=== PATIENT | male | born 1950 | race Caucasian/White ===

== ENCOUNTER 2025-03-20 05:25 | Observation (INO) ==
--- NOTE | 2025-02-14 09:59 | PAT Medication Instructions ---
Medication Instructions Date of Service February 14, 2025 Home Medications Lactobacillus rhamnosus-Bifidobac. animalis 3 billion cell capsule (GamePix) 1 cap PO DAILY alprazolam 0.25 mg tablet 0.25 mg PO DAILY PRN Anxiety azelastine 137 mcg (0.1 %) nasal spray 1 spray intranasal QAM cholecalciferol (vitamin D3) 25 mcg (1,000 unit) capsule (Vitamin D3) 25 mcg PO QAM clopidogrel 75 mg tablet 75 mg PO QPM cyanocobalamin (vitamin B-12) 2,500 mcg sublingual tablet (Vitamin B-12) 2,500 mcg sublingual DAILY folic acid 800 mcg tablet 2.4 mg PO DAILY lisinopril 10 mg tablet 10 mg PO QAM loratadine 10 mg tablet 10 mg PO QAM meclizine 25 mg tablet 25 mg PO DAILY PRN Vertigo multivitamin 1 tab PO QAM omega-3 acid ethyl esters 1 gram capsule (Lovaza) 2 cap PO BID pantoprazole 40 mg tablet,delayed release (Protonix) 40 mg PO QAM pyridoxine (vitamin B6) 100 mg tablet (Vitamin B-6) 100 mg PO DAILY risankizumab-rzaa 150 mg/mL subcutaneous pen injector (Skyrizi) 150 mg subcut UD ASK your prescriber and surgeon risankizumab-rzaa 150 mg/mL subcutaneous pen injector (Skyrizi) 150 mg subcut UD clopidogrel/plavix 75 mg tablet 75 mg PO QPM (From anesthesia perspective, Clopidogrel/Plavix is recommended to be stopped 7 days before surgery. Please check if okay with doctor that prescribes this to you) STOP taking 2 weeks before surgery (or as soon as possible if surgery is within 2 weeks) omega-3 acid ethyl esters 1 gram capsule (Lovaza) 2 cap PO BID DO NOT take the morning of surgery Lactobacillus rhamnosus-Bifidobac. animalis 3 billion cell capsule (GamePix) 1 cap PO DAILY cholecalciferol (vitamin D3) 25 mcg (1,000 unit) capsule (Vitamin D3) 25 mcg PO QAM cyanocobalamin (vitamin B-12) 2,500 mcg sublingual tablet (Vitamin B-12) 2,500 mcg sublingual DAILY folic acid 800 mcg tablet 2.4 mg PO DAILY lisinopril 10 mg tablet 10 mg PO QAM loratadine 10 mg tablet 10 mg PO QAM multivitamin 1 tab PO QAM pyridoxine (vitamin B6) 100 mg tablet (Vitamin B-6) 100 mg PO DAILY Take morning of surgery With a small sip of water, OTHERWISE NOTHING TO EAT OR DRINK AFTER MIDNIGHT: alprazolam 0.25 mg tablet 0.25 mg PO DAILY PRN Anxiety (if needed) azelastine 137 mcg (0.1 %) nasal spray 1 spray intranasal QAM meclizine 25 mg tablet 25 mg PO DAILY PRN Vertigo (if needed) pantoprazole 40 mg tablet,delayed release (Protonix) 40 mg PO QAM Take evening before surgery alprazolam 0.25 mg tablet 0.25 mg PO DAILY PRN Anxiety (if needed) meclizine 25 mg tablet 25 mg PO DAILY PRN Vertigo (if needed) Other Notes If you have any questions please call us at [phone] or [phone] or [phone] or [phone]
--- NOTE | 2025-02-21 14:12 | Anesthesiology Consultation ---
Date of Service February 21, 2025 Assessment & Plan (1) Encounter for pre-operative examination: - Infectious disease screening: Per assessment on 02/21/25- No known recent infectious disease contacts or current infectious disease symptoms. - Outpatient joint assessment: Pt currently scheduled for inpatient pathway. If surgeon requests review for outpatient joint pathway, patient is not recommended candidate for outpatient joint program from anesthesia standpoint based on available information. - Plavix instructions: patient made aware that for neuraxial anesthesia, Plavix/Clopidogrel needs to be held 7 days prior to surgery. Patient voiced understanding/will check if okay with prescriber. - Heme/oncology note (01/02/25): Medically cleared for surgery - PCP note (01/04/25): Medically cleared for surgery - Urology note (01/07/25): Medically cleared for surgery Chart Review Chart Review: Acceptable Risk for Surgery and Patient seen in Pre Admission Testing Teaching & Discussion Pre-Anesthesia Teaching/Discussion Notes: Instructed NPO after midnight before surgery,except medications with 15 cc of water. Medication instructions provided according to the PAT guidelines. History Surgery Operation Date: 03/20/25 07:00 Proposed Procedures p Left Total Knee Arthroplasty - Manjeet Hooks MD Height/Weight Height: 5 ft 11 in Weight: 97 kg Allergies Allergy/AdvReac Type Severity Reaction Status Date / Time fluconazole Allergy Hives Verified 02/12/25 07:54 naproxen [From Naprosyn] AdvReac Hiccups Verified 02/18/25 14:08 Medications Home Medications Medication Instructions Recorded Confirmed Last Taken Lactobacillus rhamnosus-Bifidobac. 1 cap PO DAILY 02/12/25 02/12/25 Unknown animalis 3 billion cell capsule (Proximiant) alprazolam 0.25 mg tablet 0.25 mg PO DAILY PRN Anxiety 02/12/25 02/12/25 Unknown azelastine 137 mcg (0.1 %) nasal 1 spray intranasal QAM 02/12/25 02/12/25 Unknown spray cholecalciferol (vitamin D3) 25 25 mcg PO QAM 02/12/25 02/12/25 Unknown mcg (1,000 unit) capsule (Vitamin D3) clopidogrel 75 mg tablet 75 mg PO QPM 02/12/25 02/12/25 Unknown cyanocobalamin (vitamin B-12) 2,500 mcg sublingual DAILY 02/12/25 02/12/25 Unknown 2,500 mcg sublingual tablet (Vitamin B-12) folic acid 800 mcg tablet 2.4 mg PO DAILY 02/12/25 02/12/25 Unknown lisinopril 10 mg tablet 10 mg PO QAM 02/12/25 02/12/25 Unknown loratadine 10 mg tablet 10 mg PO QAM 02/12/25 02/12/25 Unknown meclizine 25 mg tablet 25 mg PO DAILY PRN Vertigo 02/12/25 02/12/25 Unknown multivitamin 1 tab PO QAM 02/12/25 02/12/25 Unknown omega-3 acid ethyl esters 1 gram 2 cap PO BID 02/12/25 02/12/25 Unknown capsule (Lovaza) pantoprazole 40 mg tablet,delayed 40 mg PO QAM 02/12/25 02/12/25 Unknown release (Protonix) pyridoxine (vitamin B6) 100 mg 100 mg PO DAILY 02/12/25 02/12/25 Unknown tablet (Vitamin B-6) risankizumab-rzaa 150 mg/mL 150 mg subcut UD 02/12/25 02/12/25 Unknown subcutaneous pen injector (Skyrizi) Past Medical History Medical History History of anxiety History of hypertension History of prostate cancer Dx 09/2020, XRT started 11/2020 Hx of gastroesophageal reflux (GERD) Hx of hyperlipidemia Plaque psoriasis Reason for Skyrizi Prothrombin gene mutation Reason for Plavix Followed with [facility] hematology for 20 years and "released due to no changes in bloodwork" > Now just monitored by PCP Exercise / Class Metabolic Activity II 4-5 Yardwork/Stairs/Walk up hill (one FS: No CP, no SOB) Past Surgical History Surgical History History of carpal tunnel release of both wrists History of esophagogastroduodenoscopy (EGD) (12/08/21) History of lumbar spinal fusion (05/30/12) Hx of colonoscopy (12/08/21) Hx of tonsillectomy Past Anesthesia History No Hx of Anesthesia Complications and No Family Hx of Anesthesia Complications History of PONV No Hx of PONV and Hx of Motion Sickness (+ vetrigo) Social History Smoking Status: Never smoker Do You Dip or Chew Tobacco: No Hx Alcohol Use: Yes alcohol intake frequency: holidays/special occasions only Hx Substance Use: No substance use type: does not use Review of Systems Patient denies chest pain, shortness of breath, dyspnea on exertion, fever, chills, cough, wheezing. Physical Exam Vital Signs BP 114/61 P 60 TEMP 98.1 SP02 95%RA RESP 16 Physical Full cervical extension range of motion. Full TMJ range of motion. TMD 2.5 finger breaths Mallampati Score III Dentition: intact, + crowns, + bridge Lungs: clear throughout to auscultation Cardiac: regular rate and rhythm, no murmurs noted Spine: normal Carotid arteries: negative bruit Extremities: no LE edema Lab Results Anesthesia Preop Results Results Anesthesia Widget: WBC 6.75 K/ul (4.8-10.8) 02/21/25 Hgb 13.9 g/dl (14.0-18.0) L 02/21/25 Hct 40.4 % (42.0-52.0) L 02/21/25 Plt 199 K/uL (130-400) 02/21/25 Na 140 mmol/L (136-145) 02/21/25 K 4.2 mmol/L (3.5-5.1) 02/21/25 Cl 105 mmol/L (98-107) 02/21/25 CO2 27 mmol/L (21-32) 02/21/25 BUN 26 mg/dl (6-23) H 02/21/25 Creat 1.25 mg/dl (0.6-1.4) 02/21/25 Glucose Level 87 mg/dl (70-99(Fasting)) 02/21/25 PT 11.8 Seconds (9.0-12.0) 02/21/25 PTT 26 Seconds (21-31) 02/21/25 INR 1.1 (0.9-1.1) 02/21/25 Urine Color Yellow 02/21/25 Urine Appearance Clear (Clear) 02/21/25 Urine pH 6.5 (4.5-7.5) 02/21/25 Urine Specific Byers 1.022 (1.000-1.030) 02/21/25 Urine Protein Negative (Negative) 02/21/25 Urine Glucose (UA) Negative (Negative) 02/21/25 Urine Ketones Trace (Negative) H 02/21/25 Urine Blood Negative (Negative) 02/21/25 Urine Nitrite Negative (Negative) 02/21/25 Urine Bilirubin Negative (Negative) 02/21/25 Urine Urobilinogen Negative (Negative) 02/21/25 Urine Leukocyte Esterase Negative (Negative) 02/21/25 Blood Type A Positive 02/21/25 Antibody Screen NEGATIVE 02/21/25 Testing Electrocardiogram Date: 02/21/25 SR with first degree AVB. "Otherwise normal ECG" Chest X-Ray Date: 02/21/25 FINDINGS: Heart size and pulmonary vasculature are normal. No consolidation or pleural effusion. IMPRESSION: No acute findings.
--- NOTE | 2025-03-20 05:24 | History & Physical Bridge Note ---
Date of Service March 20, 2025 History & Physical Bridge Note I have examined the patient, reviewed the History & Physical and in the interval since the performance of the History & Physical I have noted the following changes of clinical significance:consent and site verifed.emphasized stiffness,infection and dvt prevention. no changes noted
[2025-03-20] MEDS ORDERED: MIDAZOLAM HCL 1 MG/ML 2ML VIAL ONE (05:55)
[2025-03-20] MEDS ORDERED: LIDOCAINE 2% 2 ML VIAL/AMP(20MG/ML) INFIL ONE (05:55)
[2025-03-20] MEDS ORDERED: ONDANSETRON INJ 2 MG/ML 2 ML VIAL ONE (05:56)
[2025-03-20] MEDS ORDERED: PROPOFOL IV EMULSION 10 MG/ML 20 ML VIAL IV ONE (05:56)
[2025-03-20] MEDS: LR 60ML/HR IV SCH (05:59)
[2025-03-20] MEDS: LR 500ML BOLUS, THEN 15ML/HR IV SCH (06:28)
[2025-03-20] MEDS ORDERED: ONDANSETRON INJ 2 MG/ML 2 ML VIAL IV PRN (06:31)
[2025-03-20] MEDS ORDERED: ATROPINE SULFATE 0.1 MG/ML 10ML SYR IV PRN (06:31)
[2025-03-20] MEDS ORDERED: BUPIVACAINE 0.5 % 5 MG/1 ML PF 10ML VIAL ONE (06:34)
[2025-03-20] MEDS ORDERED: ROPIVACAINE 0.5% 5 MG/ML 30 ML VIAL ONE (06:34)
[2025-03-20] MEDS: TRANEXAMIC ACID 1,000 MG **IV Pre-op IV SCH (06:36)
[2025-03-20] MEDS: ORTHO JOINT ANESTHETIC ONE (07:22)
[2025-03-20] MEDS ORDERED: ePHEDrine sulfate 50 MG/5 ML SYR ONE (07:31)
[2025-03-20] MEDS ORDERED: KETAMINE HCL 10MG/ML SYR ONE (07:33)
[2025-03-20] MEDS: ROPIV 0.5% 246mg, Ketorolac 30mg, EPINEPHrine 0.5mg in NSS INFIL SCH (08:07)
--- NOTE | 2025-03-20 08:36 | Post Operative Brief Note ---
Immediate Post Op Note Date of Surgery March 20, 2025 Pre & Post Diagnosis Operation Date: 03/20/25 07:00 <No data on this case meets the specified criteria> Cemented left total knee replacement for osteoarthritis left knee pre and postop diagnosis same I identified the patient and participated in the time-out.: Yes Procedure Operation Date: 03/20/25 07:00 <No data on this case meets the specified criteria> Cemented left total knee replacement Surgeon Manjeet Hooks MD Casting House Laborer Dominga/Rosemarie Estimated Blood Loss 75 Findings Consistent with Post-Op Diagnosis Severe medial disease grade 4 tibia and femur varus alignment grade 3 patellofemoral joint lateral compartment relatively well-preserved Fluids 1000 cc Complications None
--- NOTE | 2025-03-20 08:40 | Operative Report ---
Post Operative Report Pre & Post Diagnosis Operation Date: 03/20/25 07:00 <No data on this case meets the specified criteria> Pre and postop diagnosis osteoarthritis left knee with varus alignment flexion contracture I identified the patient and participated in the time-out.: Yes Procedure Operation Date: 03/20/25 07:00 <No data on this case meets the specified criteria> Cemented left total knee replacement Surgeon Manjeet Hooks MD Sign Poster Dominga/Rosemarie Estimated Blood Loss 75 Findings Consistent with Post-Op Diagnosis Severe medial disease tibia femur grade 3 patellofemoral joint Fluids 1000 cc Specimens Bone pathology Drains None Complications None Indications Severe pain conservative management is failed over the last 18 months including injections oral anti-inflammatories exercise modification weight management Description of Procedure After the patient was appropriate notified site for by consent verified antibiotics confirmed has been given the left lower extremity was prepped and draped use routine fashion. Tourniquet was inflated to 275 mmHg after exsanguination limb with a rubber band for total of 61 minutes. Midline exp osure utilized parapatellar thyrotomy performed synovectomy completed. Had significant stiffness posteriorly contracture medially requiring significant release. Was stopped to get the tibia to subluxate eventually it did. Menisci were resected. Cruciates were resected. Distal femur entered. Distal femur cut 11 mm proximal tibia cut 4 mm. Extension gap was checked as excellent. Tibia was sized to a 5 femur to a 5 appropriate cutting block applied to the distal femur and anterior posterior, and chamfer cuts made flexion gap checked there was excellent. A box cut was then made required multiple fine-tuning around the posterior medial posterolateral parts of the box before the implant sat down very flushed once it did we cut the lug holes. Trial fit well. Tibia was broached and reamed to a size 5 and trial spacer was 7 mm gave excellent stability through the full range of motion patella tracked well. Patella was everted and resected leaving 15 mm. It was roughly 25 mm in width. A 41 button was then seated the seating holes made in the trial seated in tracked very well. Ortho mix was then injected all about the knee knee was then irrigated with Pulsavac soaked in Betadine for 3 minutes and then irrigated again and then the permanent cemented into position tibia femur patella in that order at 12 minutes the tourniquet was deflated minor bleeding points controlled electrocautery. He did receive an additional dose of TXA a minute and a half prior to letting the tourniquet down. The trial spacer was removed no cement removal was required to the was then irrigated with Pulsavac Betadine the permanent spacer seated the knee reduced and closed at 40 degrees of flexion with #2 Vicryl 2-0 Vicryl and stainless steel clips. EBL was 75 cc crystalloid 1000 cc. Summary of implants size 41 patella's size 5 left femur cruciate PCL substituting 5 tibia rotating platform tray 5 x 7 poly posterior cruciate stabilized rotating platform direct 2 bags of Palacos G cement. These were all ATT UNE DePuy Synthes total knee system. I attest to the content of the Intraoperative Record and any orders documented therein. Any exceptions are noted below.
--- NOTE | 2025-03-20 08:44 | Operative Report ---
Post Operative Report Pre & Post Diagnosis Operation Date: 03/20/25 07:00 Pre-Op Diagnosis: Left Knee Degenerative Joint Disease Post-Op Diagnosis: Left Knee Degenerative Joint Disease I identified the patient and participated in the time-out.: Yes Procedure Operation Date: 03/20/25 07:00 Actual Procedures p Left Total Knee Arthroplasty(Left) - Manjeet Hooks MD Surgeon Manjeet Hooks MD Manager Decision Support Dominga/Rosemarie Estimated Blood Loss 75 Findings Consistent with Post-Op Diagnosis Specimens Left knee bone pathology Description of Procedure Patient was brought to the operative suite where he underwent anesthesia. Left lower extremity was prepped and draped in usual sterile fashion. Surgical timeout was performed. Patient underwent a left total knee arthroplasty, please see Dr. Hooks's operative report for full details. I was present and assisted with limb positioning, soft tissue retraction, hemostasis, hardware implantation, wound closure, postoperative dressing placement. Patient was taken recovery room in stable condition. I attest to the content of the Intraoperative Record and any orders documented therein. Any exceptions are noted below.
--- NOTE | 2025-03-20 08:45 | Operative Report ---
Post Operative Report Pre & Post Diagnosis Operation Date: 03/20/25 07:00 Pre-Op Diagnosis: Left Knee Degenerative Joint Disease Post-Op Diagnosis: Left Knee Degenerative Joint Disease I identified the patient and participated in the time-out.: Yes Procedure Operation Date: 03/20/25 07:00 Actual Procedures p Left Total Knee Arthroplasty(Left) - Manjeet Hooks MD Surgeon JJ Hooks MD Transport Rn Dominga/Rosemarie REAL Estimated Blood Loss 75 Findings Consistent with Post-Op Diagnosis See operative report Specimens See operative report Drains None Complications none Disposition Accompanied Patient To Recovery: Yes Indications 74-year-old male presented to the office with complaints of persisting left knee pain. He had tried conservative care measures, including activity modification, OTC medications, and injection therapy, without improvement. He elected to proceed with surgical intervention after being educated about potential risks and outcomes. Preoperative imaging was obtained. Description of Procedure The patient was administered a spinal anesthetic and then taken to the operating room where he was given sedation. He was prepped and draped in the usual sterile fashion. Please see Dr. Hooks's operative report for specifics of the procedure. I was present for the entire case from initial patient positioning through final wound closure. Assistance was provided in tissue retraction, hemostasis, trial implant placement, final implant placement, and final wound closure. The patient was taken to the recovery room in satisfactory condition. I attest to the content of the Intraoperative Record and any orders documented therein. Any exceptions are noted below.
--- NOTE | 2025-03-20 09:02 | Orthopedic Progress Note ---
Date of Service March 20, 2025 Orthopedic Progress Note Patient seen in recovery room. He is awake and alert. Denies chest pain shortness of breath fever chills nausea vomiting or headache. Vital signs are stable he is afebrile. Neurovascular check is limited by spinal. Postop x-rays look excellent. Assessment doing well status post left total knee replacement cemented. Continue with care pathway. Family/daughter contacted and aware of his status.
--- NOTE | 2025-03-20 09:04 | Discharge Summary ---
Date of Service March 21, 2025 Admission HPI Per Admitting Provider Osteoarthritis left knee failed conservative management Principal Diagnosis Osteoarthritis left knee status post cemented left total knee replacement Discharge Data Allergies Allergy/AdvReac Type Severity Reaction Status Date / Time fluconazole Allergy Hives Verified 03/20/25 05:47 naproxen [From Naprosyn] AdvReac Hiccups Verified 03/20/25 05:47 Vaccinations None Consultations None Procedures Performed Operation Date: 03/20/25 07:00 Actual Procedures p Left Total Knee Arthroplasty(Left) - Manjeet Hooks MD Ordered Studies 03/20/25 05:00 US - OR guided needle placemen Routine Hospital Course (1) Status post left knee replacement: Continue care plan for total knee replacement Total Time Total Time Spent Total Time Spent (In Minutes): 5 Discharge Plan Discharge Items Reason For Visit: Left Knee Osteoarthritis Discharge Diagnosis: Status post cemented left total knee replacement for osteoarthritis left knee Condition on Discharge: Good Activity: Per Instructions section Lifting: Wait until after follow-up appointment Bathing: Keep incision dry Sexual Activity: Wait until after follow-up appointment Exercise/Sports: Wait until after follow-up appointment Driving/Machine Use: No driving until cleared by Dr. Hooks Weightbearing: Full weightbearing Non-emergency contact: Surgeon Call non-emergency contact if: you have any medication questions, your pain is not controlled, your temperature is above 101, your wound has increased redness, your wound has increased drainage and your wound pain has increased Follow-up/Referrals: Nikki Ramírez MD [Primary Care Provider] - Diet: Regular Addtl Attending Provider Instructions: New Medicine: * You will likely be taking one or more of these medications: 1. Percocet - Take, as directed, when you need it, every four to six hours to control your pain. 2. Iron Sulfate - Take 1x each day for the month after surgery to help you replace the blood lost during surgery. 3. Aspirin - Thins your blood to lessen the chance of forming a blood clot. The dose of this is different for each person and is based on your blood tests that are done twice a week. * The most common side effects of pain medicine and iron are nausea and constipation. If nausea or constipation is too much of a problem or if you have any questions about your new medicines or doses, call [facility] at . We will try to help you manage these issues. "VERY IMPORTANT TO READ AND REVIEW" Blood Clots and Blood Thinning Medicine: * You are given Aspirin during the immediate post-operative period to lessen the risk of blood clots forming in your legs and/or lungs. it is usually given for six weeks after Pain: * The immediate post-operative period after knee replacement surgery is often quite painful. * You are given a prescription for pain medicine. You should take it, as directed, when you need it, especially before physical therapy and before going to bed. Pain that interferes with sleep is very common and can last several months. * You will likely need pain medicine for the first four to six weeks. It will not stop all of the pain. The pain will lessen and as you feel better, you may change to milder pain medicine such as Tylenol. * The most common side effects of pain medicine are nausea and constipation, so don't take more than you need. Physical Therapy: * You will have physical therapy two or three times each week for four to six weeks after your surgery in order to regain your knee range of motion and to retrain your knee to work properly. * It is just as important to make sure you are getting your knee perfectly straight as it is to regain your knee bend. * Taking a pain pill an hour before therapy can help you have a more productive and comfortable therapy session if needed. Home Exercise: * You were shown a series of exercises (heel props, heel slides, etc.) in the hospital. Do these exercises three to four times each day including the exercises you were shown in physical therapy. Walking: * Get up and walk several times each day. For the first four weeks, try not to stand or walk for more than one hour at a time. If you do stand or walk for more than one hour, you will not hurt anything, but your knee and leg will likely swell. * As you feel comfortable, you may change from the walker or crutches to a cane and then to independent walking. SELF CARE INSTRUCTIONS AFTER TOTAL KNEE REPLACEMENT A. You may need to continue a physical therapy program after discharge from the hospital. There are several options available to you. Your doctor will assist you in selecting the best one for you. 1. An out-patient facility 2 to 3 times a week for therapy or home therapy. 2. Continue working on all exercises taught to you in the hospital. Your goals should be to increase bending of your knee to 90 degrees and beyond and to fully straighten your knee. B. You may progress at your own pace from walking with a walker or crutches to a cane; then to no assistive devices. C. Make walking a part of your daily routine. Be up as much as comfortable with rest periods throughout the day. Rest with leg elevation is very important. Use the ice wrap frequently for the first 3-4 weeks. D. There are no restrictions on activities. You may ride in a car, shop, participate in folder and notcher and all social activities. E. Wear the long elastic stockings (NANI hose) 20 hours a day for six weeks after surgery. They can be removed several times a day for laundering and for a shower. F. Do not place a pillow behind your knee when resting. A pillow at your ankle is okay. G. You may return to previous diet. VERY IMPORTANT TO READ AND REVIEW A. Take Aspirin (blood thinning medication) as directed by your doctor. B. There are a few signs you need to watch for after you are home. Call [facility] if you notice any of the followin. Increased severe knee pain. Some pain is expected especially when you exercise. 2. Increased swelling in your leg or knee; pain or swelling of the calf muscle in either lower leg. 3. Any fluid drainage from the incision. 4. Shortness of breath or chest pain. C. Please call [facility] at if you have any concerns or questions about your operation or recovery. The doctor or his nurse will return your call promptly. D. You must take antibiotics before dental work, bladder, bowel or other surgery. Call the office to obtain a prescription at least 2 days prior to your appointment. * CALL IF INCREASED PAIN, REDNESS, DRAINAGE OR FEVER GREATER THAT 101. * Sutures should be removed 12-14 days after surgery unless you are on chronic steroids, then it will be 14-18 days after surgery. Call your doctor if: * Temperature above 101 degrees F. * Pain not relieved by pain medicine ordered. * Increased drainage or redness from incision. * Notify your doctor with any questions or concerns. MEDICATIONS: * Please take your prescriptions as instructed at your pre-op appointment and/or see medication discharge instructions listed above. * If concerns develop, call your physician's office at . SPECIAL CARE INSTRUCTIONS: * Ice/Elevate as instructed. * Keep dressing clean, dry, intact. * Your surgical extremity may be discolored due to prepping agents used on the skin. A bluish-green tint is a normal variant and should not cause alarm. Call your doctor at [phone] if: * Temperature above 101 degrees * Pain not relieved by pain medicine ordered * There is increased drainage or redness from any incision * You have any unanswered questions, problems or concerns. FOLLOW UP VISIT: * If not already scheduled, please call the office at to schedule a follow-up appointment. Pending Studies at Discharge: Yes Studies:: bone pathology Stand-Alone Forms: My [facility] Medications and DC Order Prescriptions: No Action multivitamin Tablet 1 tab PO QAM cyanocobalamin (vitamin B-12) [Vitamin B-12] 2,500 mcg Tablet, Sublingual 2,500 mcg SUBLINGUAL DAILY clopidogrel 75 mg Tablet 75 mg PO QPM alprazolam 0.25 mg Tablet 0.25 mg PO DAILY PRN (Reason: Anxiety) meclizine 25 mg Tablet 25 mg PO DAILY PRN (Reason: Vertigo) pantoprazole [Protonix] 40 mg Tablet,Delayed Release (Dr/Ec) 40 mg PO QAM lisinopril 10 mg Tablet 10 mg PO QAM pyridoxine (vitamin B6) [Vitamin B-6] 100 mg Tablet 100 mg PO DAILY azelastine 137 mcg (0.1 %) [place],Non-Aerosol 1 spray INTRANASAL QAM Rx Instructions: administer into each nostril loratadine 10 mg Tablet 10 mg PO QAM folic acid 800 mcg Tablet 2.4 mg PO DAILY cholecalciferol (vitamin D3) [Vitamin D3] 25 mcg (1,000 unit) Capsule 25 mcg PO QAM omega-3 acid ethyl esters [Lovaza] 1 gram Capsule 2 cap PO BID Skyrizi 150 mg/mL Pen Injector 150 mg SUBCUT UD Rx Instructions: every 12 weeks [facility] 3 billion cell Capsule 1 cap PO DAILY Admission Data Admit Date/Time: 03/20/25 08:53 Attending Provider: Manjeet Hooks Admit Provider: Manjeet Hooks Primary Care Provider: Nikki Ramírez V. Other Providers: [facility],Home Health
--- NOTE | 2025-03-20 09:09 | XRay Report ---
XR knee LT 1 or 2V routine CLINICAL HISTORY: S/P L TKA COMPARISON: None FINDINGS: Left knee prosthesis shows no hardware complication. There is expected soft tissue gas. Sk in [place] are present. IMPRESSION: Unremarkable postoperative exam. ACT 112: Negative or not required by law. Electronically signed by: Miguel Buenrostro M.D. 03/20/2025 9:08 AM
--- NOTE | 2025-03-20 11:05 | Anesthesiology Progress Note ---
Date of Service March 20, 2025 Anesthesia Post Procedure Vital Signs Vital Signs: Temp Pulse Resp BP Pulse Ox O2 Del Method O2 Flow Rate 03/20/25 10:45 72 19 126/72 96 Room Air 03/20/25 10:30 68 19 123/78 96 Room Air 03/20/25 10:15 69 25 H 152/63 H 98 Room Air 03/20/25 10:00 56 L 20 140/60 98 Room Air 03/20/25 09:50 57 L 14 125/54 L 92 Room Air 03/20/25 09:40 58 L 18 136/60 97 Room Air 03/20/25 09:30 97.3 F L 61 20 126/74 100 Room Air 03/20/25 09:20 56 L 15 132/63 97 Room Air 03/20/25 09:10 58 L 16 139/69 100 Room Air 03/20/25 09:00 65 18 138/65 99 Room Air 03/20/25 08:50 69 17 134/72 99 Oxymask 10 03/20/25 08:43 97.2 F L 74 18 122/67 97 Oxymask 10 03/20/25 05:50 97.7 F 61 20 161/94 H 99 Room Air Pain Intensity Left Knee: Pain Intensity: 0 Transfer of Care Handoff Completed per policy Notes Mental Status: alert / awake / arousable and participated in evaluation Patient Amnestic to Procedure: Yes Nausea / Vomiting: adequately controlled Pain: adequately controlled Airway Patency, RR, SpO2: stable & adequate BP & HR: stable & adequate Hydration State: stable & adequate Neuraxial Anesthesia: was administered and sensory block is resolving Anesthetic Complications: no major complications apparent and Pt Satisfied with anesthetic care
--- NOTE | 2025-03-20 12:05 | Orthopedic Progress Note ---
Date of Service March 20, 2025 Orthopedic Progress Note Postop check. Patient is in the PACU because they are still having difficulty getting a bed on the third floor. He denies any chest pain shortness of breath fever chills nausea vomiting or headache. Vital signs are stable he is afebrile. Neurovascular check femoral sciatic nerve is intact. Can do ankle dorsi and plantarflexion inversion eversion circumduction in both directions. Can do a straight leg raise. Wound dressing clean dry and intact. Postop x-rays look excellent. Assessment doing well status post left total knee replacement needs to get up on the floor so we can scan his therapy going get him out of bed. Initiate anticoagulation tomorrow with aspirin and his chronic platelet inhibitor.
[2025-03-20] MEDS ORDERED: NALOXONE HCL 0.4 MG/1 ML VIAL/CARP IV PRN (13:48)
[2025-03-20] MEDS ORDERED: MAGNESIUM HYDROXIDE SUSP 30 ML UDC PO PRN (13:48)
[2025-03-20] MEDS ORDERED: TAMSULOSIN HCL 0.4 MG CAP PO PRN (13:48)
[2025-03-20] MEDS ORDERED: ALUMINUM/MAGNESIUM SUSP 30 ML UDC PO PRN (13:48)
[2025-03-20] MEDS ORDERED: METOCLOPRAMIDE HCL INJ 5 MG/ML 2 ML VIAL IV PRN (13:48)
[2025-03-20] MEDS ORDERED: HYDROmorphone INJ 0.5 MG/0.5 ML SYR IV PRN (13:48)
[2025-03-20] MEDS ORDERED: MECLIZINE HCL 25 MG TAB PO PRN (13:48)
[2025-03-20] MEDS: SODIUM CHLORIDE 0.9% 1,000 ML IV SCH (14:24)
[2025-03-20] MEDS: KETOROLAC TROMETHAMINE 15 MG/ML VIAL IV SCH (14:57)
[2025-03-20] MEDS: DOCUSATE SODIUM 100 MG CAP PO SCH (14:57)
[2025-03-20] MEDS: ACETAMINOPHEN 500 MG TAB PO SCH (14:57)
[2025-03-20] MEDS: AZELASTINE HCL 0.1% NASAL 200 SPRAYS/27,400 MCG BTL NAE SCH (14:58)
[2025-03-20] MEDS: ASCORBIC ACID 500 MG TAB PO SCH (14:59)
[2025-03-20] MEDS: LORATADINE 10 MG TAB PO SCH (14:59)
[2025-03-20] MEDS: MULTIVITAMIN TAB PO SCH (14:59)
[2025-03-20] MEDS: FERROUS GLUCONATE 324 MG TAB PO SCH (14:59)
[2025-03-20] MEDS: SENNA 8.6 MG TAB PO SCH (20:22)
[2025-03-20 23:12] VITALS: RESP 16
[2025-03-20] MEDS: diphenhydrAMINE 50 MG/ML VIAL IV PRN (23:15)
[2025-03-20] MEDS: ONDANSETRON INJ 2 MG/ML 2 ML VIAL IV PRN (23:15)
[2025-03-21 03:22] VITALS: O2SAT 93
--- NOTE | 2025-03-21 06:52 | Orthopedic Progress Note ---
Date of Service March 21, 2025 Assessment & Plan Admission and Anticipated Discharge Date Admission Date: March 20, 2025 Orthopedic Progress Note Postop day #1 status post left total knee replacement. Little bit stiffer and sore today but otherwise denies chest pain shortness of breath fever chills nausea vomiting or headache. Vital signs are stable he is afebrile. Neurovascular check femoral sciatic nerve is normal. Can wiggle his toes in extension flexion and ankle dorsiflexion plantarflexion inversion eversion. Can do straight leg raise. Can flex to about 70 degrees. Calves nontender. A.m. labs are pending. Assessment doing well plan is to have PA changed dressing today prior to discharge initiate anticoagulation with aspirin and his usual antiplatelet medication. Discharge after PT OT today. Follow-up in 2 weeks for wound assessment and potential staple removal. Patient denies any other questions. Advised to call the office if he has any issues.
[2025-03-21 07:08] VITALS: BP 130/70; PULSE 69; TEMP 99.3
[2025-03-21 08:15] LABS: Hematocrit (blood only) 37.8 % (42.0-52.0); Hemoglobin 13.2 g/dl (14.0-18.0); Mean Corpuscular Hemoglobin 30.8 pg (25.0-34.0); Mean Corpuscular Volume 88.3 fL (80.0-100.0); Platelet Count 147 K/uL (130-400); RDW Standard Deviation 41.2 fL (36.4-46.3); Red Blood Count 4.28 M/uL (4.70-6.10); White Blood Count 10.26 K/ul (4.8-10.8)
[2025-03-21 08:29] LABS: Anion Gap 7.0 (3-11); Blood Urea Nitrogen 20.0 mg/dl (6-23); Calcium 8.6 mg/dl (8.6-10.3); Carbon Dioxide 26.0 mmol/L (21-32); Chloride 102.0 mmol/L (98-107); Creatinine Clr Calc Pharmacy 58.7 ml/min; Glucose 111.0 mg/dl (70-99(Fasting)); Potassium 4.3 mmol/L (3.5-5.1); Sodium 135.0 mmol/L (136-145)
--- NOTE | 2025-03-21 08:44 | Orthopedic Progress Note ---
Date of Service March 21, 2025 Assessment & Plan (1) Status post left knee replacement: Plan: The patient was educated regarding today's findings. His dressings were changed today by me. Randy stocking was applied. The dressing can remain in place through the weekend. He can be changed on Tuesday by home health services if needed for soiling. They can otherwise remain in place until he is seen in the office in 2 weeks. Postop appointment has been scheduled for April 04. He will resume his Plavix this evening and add aspirin 325 mg twice daily for DVT prophylaxis. Written discharge instructions were provided. Call the office with any other concerns. Use the knee immobilizer when out of bed today and tomorrow for protection. It can be discontinued entirely on Tuesday morning. Admission and Anticipated Discharge Date Admission Date: March 20, 2025 Subjective This 74 year old male is seen today in his room. He is 1 day status post left total knee arthroplasty. He states he did not sleep well last night. There were too many interruptions and his leg was spasming periodically, causing it to jump. He denies any chest pain, shortness of breath, nausea, vomiting, or abdominal pain. He feels ready to be discharged to home. No other complaints. He is waiting for PT and OT. Review of Systems Review of Systems: Unchanged from yesterday. Physical Exam Physical Exam: General: Well-developed, well-nourished, elderly male, in no acute distress. Seen laying in bed. Alert and oriented. Skin: Warm and dry with good turgor. No rashes. No ecchymosis. Postsurgical dressings are in place on the left leg. Upon removal, he has expected postoperative edema. No ecchymosis or erythema. [place] are in place. Wound edges are well-approximated. No active bleeding. Musculoskeletal: Left knee evaluation reveals flexion to around 70 degrees. He has resting flexion of around 20 degrees. He is able to get almost to full extension with encouragement and time. He is able to perform a straight leg raise. Intact motor function of the ankle and toes. Neurologic: Gross sensation is intact across the left leg by soft touch. Peripheral pulses are 2+. Results & Data Vital Signs (Past 12 Hours) Vital Signs Temp Pulse Pulse Resp BP BP Pulse Ox 03/21/25 07:07 37.4 C 69 16 130/70 93 03/21/25 03:21 37.1 C 68 16 123/67 93 03/20/25 23:12 37.2 C 74 16 135/73 94 O2 Del Method 03/21/25 07:07 Room Air 03/21/25 03:21 Room Air 03/20/25 23:12 Room Air Laboratory Results CBC obtained this morning shows a white count of 10.26. H&H of 13.2 and 37.8. Platelets are normal at 147,000. Chemistry panel is unremarkable. Sodium 135, potassium 4.3, CO2 26. Anion gap of 7. BUN of 20 with creatinine 1.3. Glucose this morning is 111.
[2025-03-21] MEDS: dexAMETHasone 10 MG in SYRINGE 0 ML IV SCH (09:39)
[2025-03-21] MEDS: ASPIRIN 81 MG ECTAB PO SCH (09:40)
[2025-03-21] MEDS ORDERED: CLOPIDOGREL BISULFATE 75 MG TAB PO SCH (21:00)
== END 2025-03-21 10:43 | disposition home health service (06) ==
LOC: PACUINP 05:25 → ASU 05:25 → 3E 13:38

== ENCOUNTER 2025-06-05 06:15 | Observation (INO) ==
--- NOTE | 2025-05-28 11:26 | Anesthesiology Consultation ---
Date of Service May 28, 2025 Assessment & Plan (1) Encounter for pre-operative examination: Chart Review Chart Review: Acceptable Risk for Surgery (pending surgeon ordered PCP clearance and nuclear portion of 2021 stress test from [facility] ) and Patient NOT seen in Pre Admission Testing - Please obtain nuclear portion of stress test done 09/18/21 (done at [facility]) - Awaiting surgeon ordered PCP clearance (noted in surgeon H&P) - Patient is NOT an ideal OPJ candidate - currently 23 hours obs - Plavix instructions per surgeon and prescribing provider -Infectious Disease screening: Per PAT nursing assessment on 05/28/25. No known infectious disease contacts in past 10 days or current infectious disease symptoms. No recent travel outside the country. Left TKA 03/20/25= Done under SAB at L3-4 with 1 attempt - Heme/oncology note (01/02/25) (prior to left TKA surgery): Medically cleared for surgery History Surgery Operation Date: 06/05/25 09:05 Proposed Procedures p Right Reverse Total Shoulder Arthroplasty - Manjeet Hooks MD s versus Anatomic - Manjeet Hooks MD Height/Weight Height: 5 ft 11 in Weight: 92.986 kg Allergies Allergy/AdvReac Type Severity Reaction Status Date / Time fluconazole Allergy Intermediate Hives Verified 05/28/25 09:05 naproxen [From Naprosyn] AdvReac Intermediate Hiccups Verified 05/28/25 09:05 Hapkwuw-UPD-YcK Reductase AdvReac Intermediate Muscle Pain Verified 05/28/25 09:23 Inhibitor Medications Home Medications Medication Instructions Recorded Confirmed Last Taken Lactobacillus rhamnosus-Bifidobac. 1 cap PO DAILY 02/12/25 05/28/25 03/19/25 08:00 animalis 3 billion cell capsule ([employer]) alprazolam 0.25 mg tablet 0.25 mg PO DAILY PRN Anxiety 02/12/25 05/28/25 03/18/25 azelastine 137 mcg (0.1 %) nasal 1 spray intranasal QAM 02/12/25 05/28/25 03/19/25 08:00 spray cholecalciferol (vitamin D3) 25 25 mcg PO QAM 02/12/25 05/28/25 03/19/25 08:00 mcg (1,000 unit) capsule (Vitamin D3) clopidogrel 75 mg tablet 75 mg PO QPM 02/12/25 05/28/25 10 Days Ago ~03/10/25 cyanocobalamin (vitamin B-12) 2,500 mcg sublingual DAILY 02/12/25 05/28/25 03/19/25 17:00 2,500 mcg sublingual tablet (Vitamin B-12) folic acid 800 mcg tablet 2.4 mg PO DAILY 02/12/25 05/28/25 03/19/25 17:00 lisinopril 10 mg tablet 10 mg PO QAM 02/12/25 05/28/25 03/19/25 08:00 loratadine 10 mg tablet 10 mg PO QAM 02/12/25 05/28/25 03/19/25 08:00 meclizine 25 mg tablet 25 mg PO DAILY PRN Vertigo 02/12/25 05/28/25 2 Weeks Ago ~03/06/25 multivitamin 1 tab PO QAM 02/12/25 05/28/25 03/19/25 08:00 omega-3 acid ethyl esters 1 gram 2 cap PO BID 02/12/25 05/28/25 2 Weeks Ago capsule (Lovaza) ~03/06/25 pantoprazole 40 mg tablet,delayed 40 mg PO QAM 02/12/25 05/28/25 03/19/25 08:00 release (Protonix) pyridoxine (vitamin B6) 100 mg 100 mg PO DAILY 02/12/25 05/28/25 03/19/25 08:00 tablet (Vitamin B-6) risankizumab-rzaa 150 mg/mL 150 mg subcut UD 02/12/25 05/28/25 10 Weeks Ago subcutaneous pen injector (Skyrizi) ~01/09/25 Past Medical History Medical History Fatty liver GERD (gastroesophageal reflux disease) History of anxiety History of prostate cancer Dx 09/2020, XRT started 11/2020 History of TIA (transient ischemic attack) (2001) Hyperlipidemia Hypertension On anticoagulant therapy Osteoarthritis Plaque psoriasis Reason for Skyrizi Prothrombin gene mutation - Dx in 2002 from 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 Seasonal allergies Past Family History Family History Other No family history of adverse response to anesthesia Past Surgical History Surgical History History of carpal tunnel release of both wrists History of esophagogastroduodenoscopy (EGD) (12/08/21) History of lumbar spinal fusion (05/30/12) Hx of colonoscopy (12/08/21) Hx of tonsillectomy Hx of total knee arthroplasty (03/20/25) left TKA Social History Smoking Status: Never smoker Do You Dip or Chew Tobacco: No Hx Alcohol Use: Yes alcohol intake frequency: holidays/special occasions only Hx Substance Use: No substance use type: does not use Lab Results Anesthesia Preop Results Results Anesthesia Widget: WBC 10.46 K/ul (4.8-10.8) 05/27/25 Hgb 13.3 g/dl (14.0-18.0) L 05/27/25 Hct 39.6 % (42.0-52.0) L 05/27/25 Plt 213 K/uL (130-400) 05/27/25 Na 138 mmol/L (136-145) 05/27/25 K 4.2 mmol/L (3.5-5.1) 05/27/25 Cl 104 mmol/L (98-107) 05/27/25 CO2 28 mmol/L (21-32) 05/27/25 BUN 27 mg/dl (6-23) H 05/27/25 Creat 1.15 mg/dl (0.6-1.4) 05/27/25 Glucose Level 88 mg/dl (70-99(Fasting)) 05/27/25 PT 11.8 Seconds (9.0-12.0) 05/27/25 INR 1.1 (0.9-1.1) 05/27/25 Urine Color Yellow 05/27/25 Urine Appearance Clear (Clear) 05/27/25 Urine pH 5.5 (4.5-7.5) 05/27/25 Urine Specific [place] 1.022 (1.000-1.030) 05/27/25 Urine Protein Negative (Negative) 05/27/25 Urine Glucose (UA) Negative (Negative) 05/27/25 Urine Ketones Negative (Negative) 05/27/25 Urine Blood Negative (Negative) 05/27/25 Urine Nitrite Negative (Negative) 05/27/25 Urine Bilirubin Negative (Negative) 05/27/25 Urine Urobilinogen Negative (Negative) 05/27/25 Urine Leukocyte Esterase Negative (Negative) 05/27/25 Testing Laboratory Results 05/27/25= URINE CULTURE: Results pending (will leave final results to surgeon's discretion to review and determine how to proceed) Electrocardiogram Date: 02/21/25 SR with first degree AVB. "Otherwise normal ECG" Chest X-Ray Date: 02/21/25 FINDINGS: Heart size and pulmonary vasculature are normal. No consolidation or pleural effusion. IMPRESSION: No acute findings. Echocardiogram Date: 09/18/21 EF: 55-60% LV Function: normal RWMA: + none Other Findings: no LVH or no diastolic dysfunction Valvular Disease: + no significant valvular disease Stress Test Date: 09/18/21 Type: nuclear Lexiscan EKG is not indicative of ischemia
--- NOTE | 2025-06-04 16:00 | History & Physical Bridge Note ---
Date of Service June 04, 2025 History & Physical Bridge Note I have examined the patient, reviewed the History & Physical and in the interval since the performance of the History & Physical I have noted the following changes of clinical significance: Consent and site verified. Emphasized complications such as DVT fracture nerve and artery injury infection and instability. He states he understands and wants to proceed.no changes noted
[~2025-06-05 06:15] MED LIST: ROPIV 0.5% 246mg, Ketorolac 30mg, EPINEPHrine 0.5mg in NSS INFIL SCH; VANCOMYCIN HCL 1,250 MG in SODIUM CHLORIDE 0.9% 250 ML IV SCH
[2025-06-05] MEDS ORDERED: BUPIVACAINE 0.5 % 5 MG/1 ML PF 10ML VIAL ONE (06:37)
[2025-06-05] MEDS: LR 60ML/HR IV SCH (07:00)
[2025-06-05] MEDS: LR 15ML/HR IV SCH (07:01)
[2025-06-05] MEDS ORDERED: LIDOCAINE 2% 2 ML VIAL/AMP(20MG/ML) INFIL ONE (08:10)
[2025-06-05] MEDS ORDERED: MIDAZOLAM HCL 1 MG/ML 2ML VIAL ONE (08:10)
[2025-06-05] MEDS ORDERED: ONDANSETRON INJ 2 MG/ML 2 ML VIAL ONE (08:10)
[2025-06-05] MEDS ORDERED: PROPOFOL IV EMULSION 10 MG/ML 20 ML VIAL IV ONE (08:10)
--- NOTE | 2025-06-05 08:13 | Anesthesiology Consultation ---
Date of Service June 05, 2025 Assessment & Plan Chart Review Chart Review: Acceptable Risk for Surgery Consults Requested none History Surgery Operation Date: 06/05/25 08:50 Proposed Procedures p Right Reverse Total Shoulder Arthroplasty - Manjeet Hooks MD s versus Anatomic - Manjeet Hooks MD Height/Weight Height: 5 ft 11 in Weight: 93.9 kg Allergies Allergy/AdvReac Type Severity Reaction Status Date / Time fluconazole Allergy Intermediate Hives Verified 06/05/25 06:37 naproxen [From Naprosyn] AdvReac Intermediate Hiccups Verified 06/05/25 06:37 [id number]-[id number] Reductase AdvReac Intermediate Muscle Pain Verified 06/05/25 06:37 Inhibitor Medications Home Medications Medication Instructions Recorded Confirmed Last Taken Lactobacillus rhamnosus-Bifidobac. 1 cap PO DAILY 02/12/25 06/05/25 06/04/25 08:00 animalis 3 billion cell capsule (Clothia) alprazolam 0.25 mg tablet (Xanax) 0.25 mg PO DAILY PRN Anxiety 02/12/25 06/05/25 06/04/25 20:00 azelastine 137 mcg (0.1 %) nasal 1 spray intranasal QAM 02/12/25 06/05/25 06/05/25 04:30 spray cholecalciferol (vitamin D3) 25 25 mcg PO QAM 02/12/25 06/05/25 06/04/25 17:00 mcg (1,000 unit) capsule (Vitamin D3) clopidogrel 75 mg tablet 75 mg PO QPM 02/12/25 06/05/25 05/25/25 20:00 cyanocobalamin (vitamin B-12) 2,500 mcg sublingual DAILY 02/12/25 06/05/25 06/04/25 17:00 2,500 mcg sublingual tablet (Vitamin B-12) folic acid 800 mcg tablet 2.4 mg PO DAILY 02/12/25 06/05/25 05/27/25 17:00 lisinopril 10 mg tablet 10 mg PO QAM 02/12/25 06/05/25 06/04/25 08:00 loratadine 10 mg tablet 10 mg PO QAM 02/12/25 06/05/25 06/04/25 08:00 meclizine 25 mg tablet 25 mg PO DAILY PRN Vertigo 02/12/25 06/05/25 2 Weeks Ago ~03/06/25 multivitamin 1 tab PO QAM 02/12/25 06/05/25 05/28/25 08:00 omega-3 acid ethyl esters 1 gram 2 cap PO BID 02/12/25 06/05/25 05/25/25 08:00 capsule (Lovaza) pantoprazole 40 mg tablet,delayed 40 mg PO QAM 02/12/25 06/05/25 06/04/25 08:00 release (Protonix) pyridoxine (vitamin B6) 100 mg 100 mg PO DAILY 02/12/25 06/05/25 06/04/25 17:00 tablet (Vitamin B-6) risankizumab-rzaa 150 mg/mL 150 mg subcut UD 02/12/25 06/05/25 03/28/25 08:00 subcutaneous pen injector (Skyrizi) Active Medications Generic Name Dose Route Start Last Admin Trade Name Freq PRN Reason Stop Dose Admin Lactated Ringer's 1,000 mls @ 60 mls/hr 06/05/25 06:00 06/05/25 07:00 Lr IV 06/05/25 22:39 Not Given .[id number] DWAIN Lactated Ringer's 1,000 mls @ 15 mls/hr 06/05/25 06:00 06/05/25 07:01 Lr IV 06/06/25 05:59 15 mls/hr .Q24H DWAIN Administration NPO Date Last Intake of Fluids: 06/04/25 Time Last Intake of Fluids: 20:00 Date Last Intake of Solids: 06/04/25 Time Last Intake of Solids: 20:00 Past Medical History Medical History Fatty liver GERD (gastroesophageal reflux disease) History of anxiety History of prostate cancer Dx 09/2020, XRT started 11/2020 History of TIA (transient ischemic attack) (2001) Hyperlipidemia Hypertension On anticoagulant therapy Osteoarthritis Plaque psoriasis Reason for Skyrizi Prothrombin gene mutation - Dx in 2002 from gene testing in [place] - States he was 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 Seasonal allergies Past Family History Family History Other No family history of adverse response to anesthesia Past Surgical History Surgical History History of carpal tunnel release of both wrists History of esophagogastroduodenoscopy (EGD) (12/08/21) History of lumbar spinal fusion (05/30/12) Hx of colonoscopy (12/08/21) Hx of tonsillectomy Hx of total knee arthroplasty (03/20/25) left TKA Social History Smoking Status: Never smoker Do You Dip or Chew Tobacco: No Hx Alcohol Use: Yes alcohol intake frequency: holidays/special occasions only Hx Substance Use: No substance use type: does not use Physical Exam Vital Signs Last Vital Signs Temp 36.4 C L 06/05/25 06:44 Pulse 62 06/05/25 06:44 Resp 20 06/05/25 06:44 BP 165/75 H 06/05/25 06:44 Pulse Ox 99 06/05/25 06:44 O2 Del Method Room Air 06/05/25 06:44 Testing Laboratory Results Blood Type A Positive 06/05/25 06:22 Antibody Screen NEGATIVE 06/05/25 06:22
[2025-06-05] MEDS ORDERED: ONDANSETRON INJ 2 MG/ML 2 ML VIAL IV PRN (08:16)
[2025-06-05] MEDS ORDERED: ATROPINE SULFATE 0.1 MG/ML 10ML SYR IV PRN (08:16)
[2025-06-05] MEDS ORDERED: HYDROmorphone INJ 1 MG/ML SYRINGE IV PRN (08:16)
[2025-06-05] MEDS ORDERED: PROMETHAZINE HCL 6.25 MG in SODIUM CHLORIDE 0.9% 50 ML IV PRN (08:16)
[2025-06-05] MEDS ORDERED: ROCURONIUM BROMIDE 10 MG/ML 5 ML VIAL IV ONE (08:26)
[2025-06-05] MEDS: TRANEXAMIC ACID 1,000 MG **IV Pre-op IV SCH (08:47)
[2025-06-05] MEDS: ORTHO JOINT ANESTHETIC ONE (10:14)
[2025-06-05] MEDS ORDERED: ePHEDrine sulfate 50 MG/5 ML SYR ONE (10:35)
[2025-06-05] MEDS ORDERED: SUGAMMADEX SODIUM 200 MG/2 ML VIAL IV ONE (10:57)
[2025-06-05] MEDS ORDERED: PHENYLEPHRINE 100MCG/ML 5ML SYR ONE (11:04)
[2025-06-05] MEDS: THROMBIN FOR SOLN 20000 UNIT KIT ONE (11:31)
--- NOTE | 2025-06-05 11:51 | Post Operative Brief Note ---
Immediate Post Op Note Date of Surgery June 05, 2025 Pre & Post Diagnosis Operation Date: 06/05/25 08:50 Pre-Op Diagnosis: Right Shoulder Osteoarthritis rotator cuff arthropathy Post-Op Diagnosis: Right Shoulder Osteoarthritis rotator cuff arthropathy I identified the patient and participated in the time-out.: Yes Procedure Operation Date: 06/05/25 08:50 Actual Procedures p Right Reverse Total Shoulder Arthroplasty(Right) - Manjeet Hooks MD Surgeon Manjeet Hooks MD Flanging Roll Operator Rosemarie no resident or fellow available Estimated Blood Loss 100 Findings Consistent with Post-Op Diagnosis Complete loss of supraspinatus infraspinatus significant deficiency and subscapularis Fluids 700 cc Complications None
--- NOTE | 2025-06-05 11:56 | Operative Report ---
Post Operative Report Pre & Post Diagnosis Operation Date: 06/05/25 08:50 Pre-Op Diagnosis: Right Shoulder Osteoarthritis Post-Op Diagnosis: Right Shoulder Osteoarthritis I identified the patient and participated in the time-out.: Yes Procedure Operation Date: 06/05/25 08:50 Actual Procedures p Right Reverse Total Shoulder Arthroplasty(Right) biceps tenodesis- Manjeet Hooks MD Surgeon Manjeet Hooks MD Alternative Financing Specialist ruth no resident or fellow available Estimated Blood Loss 100 Findings Consistent with Post-Op Diagnosis Complete loss of supraspinatus infraspinatus high-grade injury subscapularis marked biceps tendinopathy Fluids 700 cc Specimens Bone pathology Drains None Complications None Indications Severe pain failed conservative management. MRI with advanced rotator cuff disease and arthropathy superior elevation of the humerus Description of Procedure After the patient was appropriate implant site verified consent verified antibiotic regimen given the right shoulder was examined revealing no instability had forward flexion 120 degrees abduction same rotation belly to 20 degrees felt. Had marked pain. He was then carefully prepped and draped in usual routine fashion and a deltopectoral approach to the shoulder made. Cephalic vein was retracted laterally. There was some scar subscap left at the inferior half the superior half was gone it was tagged and then released all the release was done inside the shoulder. This allowed complete release all the way around. Once this was done humerus was then dislocated and humeral head resected. Retractors were then placed. The baseplate was then centered was noted to be small 24 baseplate appropriate reaming was carried out and then the small RS baseplate was inserted excellent purchase and obtained the center screw and 3 additional screws all locking placed. There was a 225 mm and 120 mm. Trial glenosphere was then seated. Humerus was then manipulated back into the wound and then propped approximately the humerus was prepared and a medium short stem was applied to the medium shell with 32+0 liner provided excellent stability excellent range of motion. All trial implants were then removed wound was irrigated. The the permanent Dome was then seated the permanent head the stem was seated sutures were placed through the uterus to try to repair what was left of the subscap that was carried out with #2 FiberWire 3 of them. Biceps was then tenodesed as it was released proximally had a lot of tendinopathy. It was debrided and tenodesed. It was tenodesed to the local tissue anteriorly. The wound was then irrigated and then closed with 2-0 plain for the deltopectoral interval to 0.0 subcutaneous layer george. Skin. Appropriate dressing was applied placed in a sling and belly band. Patient transferred recovery in satisfactory condition he tolerated the procedure well. Summary of implants small baseplate varus RSR speed enhanced total shoulder system 3 screws 25 x 220 x 1 32+4 glenosphere short medium stem and hands shoulder system 36 x 74 this was bone grafted around it as well medium shell reverse humeral shell 32+0 liner. EBL was 100 cc crystalloid 70 cc. Patient was then transferred, satisfactory send he tolerated the procedure well. I attest to the content of the Intraoperative Record and any orders documented therein. Any exceptions are noted below.
--- NOTE | 2025-06-05 12:00 | Orthopedic Progress Note ---
Date of Service June 05, 2025 Orthopedic Progress Note Patient underwent right reverse total shoulder replacement as rotator cuff was complete cannot do an anatomic. Tolerated procedure well. Blood loss was roughly 100 cc. Block is working well and is comfortable. Family contacted daughter Mira [phone] left message. Went to voicemail.
--- NOTE | 2025-06-05 12:01 | Discharge Summary ---
Date of Service June 06, 2025 Admission HPI Per Admitting Provider Rotator cuff arthropathy right shoulder Principal Diagnosis Status post reverse total shoulder replacement for rotator cuff arthropathy right shoulder Discharge Data Allergies Allergy/AdvReac Type Severity Reaction Status Date / Time fluconazole Allergy Intermediate Hives Verified 06/05/25 06:37 naproxen [From Naprosyn] AdvReac Intermediate Hiccups Verified 06/05/25 06:37 [id number] Reductase AdvReac Intermediate Muscle Pain Verified 06/05/25 06:37 Inhibitor Vaccinations None Consultations None Procedures Performed Operation Date: 06/05/25 08:50 Actual Procedures p Right Reverse Total Shoulder Arthroplasty(Right) - Manjeet Hooks MD Ordered Studies 06/05/25 05:00 US - OR guided needle placemen Routine Hospital Course (1) Status post replacement of right shoulder joint: Total Time Total Time Spent Total Time Spent (In Minutes): 10 Discharge Plan Discharge Items Patient Disposition: Home - Self-Care Reason For Visit: Right Shoulder Osteoarthritis Discharge Diagnosis: Status post reverse right total shoulder replacement rotator cuff arthropathy Condition on Discharge: Good Activity: Per Instructions section Lifting: Wait until after follow-up appointment Bathing: Keep incision dry Sexual Activity: Wait until after follow-up appointment Exercise/Sports: Wait until after follow-up appointment Non-emergency contact: Surgeon Call non-emergency contact if: you have any medication questions, your t emperature is above 101, your wound has increased redness, your wound has increased drainage and your wound pain has increased Follow-up/Referrals: Mehrdad Houston PA-C [Physician Filter Worker] - 06/20/25 Nikki Ramírez MD [Primary Care Provider] - Diet: Regular Addtl Attending Provider Instructions: DIET: * Resume previous diet. MEDICATIONS: * Please take your prescriptions as instructed at your pre-op appointment and/or see medication discharge instructions listed above. * If concerns develop, call your physician's office at . SPECIAL CARE INSTRUCTIONS: * Ice/Elevate as instructed. * Keep dressing clean, dry, intact. * Your surgical extremity may be discolored due to prepping agents used on the skin. A bluish-green tint is a normal variant and should not cause alarm. Call your doctor at [phone] if: * Temperature above 101 degrees * Pain not relieved by pain medicine ordered * There is increased drainage or redness from any incision * You have any unanswered questions, problems or concerns. FOLLOW UP VISIT: * If not already scheduled, please call the office at to schedule a follow-up appointment. The following are instructions to follow after "Shoulder Surgery" including, Acromioplasty, Rotator Cuff Repair and Instability Surgery ACTIVITY RECOMMENDATIONS: * Minimize activity after surgery. * No excessive walking, jogging, sports or laboring. * Return to activity is individualized depending on the patient and type of surgery. * Driving is not permitted until at least your first post operative visit. Please ask your doctor when it is safe to resume driving. * Expect increased discomfort with increased activity. Continue to ice the shoulder as needed. SCHOOL/WORK RECOMMENDATIONS: * You may return to sedentary work or school when you are feeling more comfortable. This is usually 3-7 days after surgery. MEDICATIONS: * You will have a prescription for pain medication after surgery. * Use the pain medication for severe pain and an anti-inflammatory for less severe pain. Once the pain medication has run out, try to use the anti-inflammatory medication. If this is not effective, contact the office for assistance. * The pain medication may cause nausea, constipation and drowsiness. You should see how they affect you before driving or similar activity. * The anti-inflammatory medication may cause stomach upset and bleeding. If this occurs let your doctor know immediately . * Take a stool softener like Colace or a laxative like Senokot to prevent constipation. SPECIAL CARE: ICE: You have the option of gel packs or ice bags. Do not apply ice directly to the skin. Use a thin dressing or farrah shirt between the skin and ice bag. Apply ice for 20-30 minutes and repeat every 2-4 hours. This is especially important for the first 7-10 days after surgery. Once the pain improves, use ice as needed. ELEVATION: * You may be more comfortable sleeping in an upright position. Use the sling to elevate your arm. DRESSING: * Your dressing will be changed at your first therapy appointment approximately 4-5 days after surgery. Band-aids, tape strips or gauze may be applied. You may then change your dressing daily. * Reapply dressing followed by the sling. * Always wash your hands prior to touching the incision area. * Once the stitches are removed, you may leave the wound open to air or cover with gauze. * Expect some bloody drainage for the first few days after surgery. * Leave the tape strips, if present, in place for 5-7 days. * Band-aids and gauze may be changed daily. * There may be a gauze pad in your armpit area. This can be changed daily or replaced by a dry washcloth. SLING/BRACE: * You will need to use a sling or brace after surgery. The length of time the sling is used is dependent upon the type of surgery performed. * Arthroscopic Acromioplasty requires use of the sling for 2-4 weeks for comfort. * Labral procedures and Rotator Cuff Repairs require use of the sling for a longer period of time. Please check with your doctor prior to discontinuing the sling. BATHING: * You may shower or sponge-bathe immediately after surgery. The post operative shoulder dressing is mostly water-tight. You may shower right over this dressing, but be reasonably careful not to get the gauze or incision wet. * Once the dressing has been changed on the fourth or fifth day after surgery, you may shower and get the incision wet. * Wash with regular soap and water. * Do not bathe (submerge the incision), soak, swim or use a hot tub until the incision is completely healed over with normal skin and the doctor has given the OK to proceed. * There is no need to apply any ointments, powders or salves to your incision. * Do not apply alcohol or hydrogen peroxide directly to the incision. * Diluted peroxide (50:50 mixture with sterile saline) may be used to clean dried blood from around the incision area. THERAPY: * You will begin therapy four or five days after surgery. * Organized therapy with the therapist is important for the first 2-4 months after surgery depending on the type of procedure. During that time you will attend therapy 1-3 times per week. * You will also need to do daily exercises for range of motion and strength as instructed. * Patients who have a Capsular Shift Procedure will need to abide by temporary range of motion limitations. * Patients having Rotator Cuff Surgery are not allowed to actively lift their arms until 4-6 weeks after surgery. * Please check with your doctor regarding appropriate motion restrictions. FOLLOW UP VISIT: * If not already scheduled, please call the office at to schedule a follow-up appointment for 10 days after surgery and monthly thereafter. Take Rifampin 150mg 2x day x 2 weeks Pending Studies at Discharge: Yes Studies:: bone pathology Stand-Alone Forms: My [facility] Medications and DC Order Prescriptions: No Action multivitamin Tablet 1 tab PO QAM cyanocobalamin (vitamin B-12) [Vitamin B-12] 2,500 mcg Tablet, Sublingual 2,500 mcg SUBLINGUAL DAILY clopidogrel 75 mg Tablet 75 mg PO QPM alprazolam [Xanax] 0.25 mg Tablet 0.25 mg PO DAILY PRN (Reason: Anxiety) meclizine 25 mg Tablet 25 mg PO DAILY PRN (Reason: Vertigo) pantoprazole [Protonix] 40 mg Tablet,Delayed Release (Dr/Ec) 40 mg PO QAM lisinopril 10 mg Tablet 10 mg PO QAM pyridoxine (vitamin B6) [Vitamin B-6] 100 mg Tablet 100 mg PO DAILY azelastine 137 mcg (0.1 %) [place],Non-Aerosol 1 spray INTRANASAL QAM Rx Instructions: administer into each nostril loratadine 10 mg Tablet 10 mg PO QAM folic acid 800 mcg Tablet 2.4 mg PO DAILY cholecalciferol (vitamin D3) [Vitamin D3] 25 mcg (1,000 unit) Capsule 25 mcg PO QAM omega-3 acid ethyl esters [Lovaza] 1 gram Capsule 2 cap PO BID Skyrizi 150 mg/mL Pen Injector 150 mg SUBCUT UD Rx Instructions: every 12 weeks [facility] 3 billion cell Capsule 1 cap PO DAILY Discharge Orders: Discharge Order (Routine); Ordered 06/06/25 Ordered By: Manjeet Hooks Admission Data Admit Date/Time: 06/05/25 12:17 Attending Provider: Manjeet Hooks Admit Provider: Manjeet Hooks Primary Care Provider: Nikki Ramírez V.
--- NOTE | 2025-06-05 12:07 | Operative Report ---
Post Operative Report Pre & Post Diagnosis Operation Date: 06/05/25 08:50 Pre-Op Diagnosis: Right Shoulder Osteoarthritis Post-Op Diagnosis: Right Shoulder Osteoarthritis I identified the patient and participated in the time-out.: Yes Procedure Operation Date: 06/05/25 08:50 Actual Procedures p Right Reverse Total Shoulder Arthroplasty(Right) - Manjeet Hooks MD Surgeon JJ Hooks MD Rehabilitation Inspector [facility] no resident or fellow available Estimated Blood Loss 100 Findings Consistent with Post-Op Diagnosis see operative report Specimens see operative report Drains none Complications none Disposition Accompanied Patient To Recovery: Yes Indications This 74 year old male presented to the office for complaints of persisting right shoulder pain. He had tried conservative care measures without improvement. He elected to proceed with surgical intervention after being educated about potential risks and outcomes. Preoperative imaging has been obtained. Description of Procedure The patient was administered a regional block and then taken the operating room where he was given general anesthesia. He was prepped and draped in the usual sterile fashion. Please see Dr. Hooks's operative report for specifics of the procedure. I was present for the entire case for initial patient positioning through final wound closure. Assistance was provided in tissue retraction, hemostasis, trial implant placement, final implant placement, and final wound closure. The patient was taken to the recovery room in satisfactory condition. I attest to the content of the Intraoperative Record and any orders documented therein. Any exceptions are noted below.
--- NOTE | 2025-06-05 12:41 | XRay Report ---
XR shoulder RT 1V CLINICAL HISTORY: AP view only in sling. S/P R TSA COMPARISON: 01/21/2025 FINDINGS: Right shoulder prosthesis shows no hardware complication. There is expected soft tissue ga s. Skin george are present. IMPRESSION: Unremarkable postoperative exam. ACT 112: Negative or not required by law. Electronically signed by: Miguel Buenrostro M.D. 06/05/2025 12:40 PM
[2025-06-05] MEDS ORDERED: VANCOMYCIN 1,500 MG in D5W 500mL (Use w/ NSS Shortage) IV ONE (12:45)
[2025-06-05] MEDS ORDERED: TAMSULOSIN HCL 0.4 MG CAP PO PRN (12:54)
[2025-06-05] MEDS ORDERED: HYDROmorphone INJ 0.5 MG/0.5 ML SYR IV PRN (12:54)
[2025-06-05] MEDS ORDERED: NALOXONE HCL 0.4 MG/1 ML VIAL/CARP IV PRN (12:54)
[2025-06-05] MEDS ORDERED: MAGNESIUM HYDROXIDE SUSP 30 ML UDC PO PRN (12:54)
[2025-06-05] MEDS ORDERED: diphenhydrAMINE 50 MG/ML VIAL IV PRN (12:54)
[2025-06-05] MEDS ORDERED: VANCOMYCIN CONSULT ACTIVE PRN (12:54)
[2025-06-05] MEDS ORDERED: ALUMINUM/MAGNESIUM SUSP 30 ML UDC PO PRN (12:54)
[2025-06-05] MEDS: BUPIVACAINE LIPOSOME 1.3% 133 MG/10 ML VIAL ONE (13:04)
[2025-06-05] MEDS: VANCOMYCIN HCL 1,500 MG in SODIUM CHLORIDE 0.9% 500 ML IV ONE (13:30)
[2025-06-05] MEDS: ACETAMINOPHEN 500 MG TAB PO SCH (13:30)
[2025-06-05] MEDS: SODIUM CHLORIDE 0.9% 1,000 ML IV SCH (13:30)
--- NOTE | 2025-06-05 13:35 | Anesthesiology Progress Note ---
Date of Service June 05, 2025 Anesthesia Post Procedure Vital Signs Vital Signs: Temp Pulse Pulse Resp BP Pulse Ox O2 Del Method 06/05/25 13:24 36.4 C L 79 16 147/83 H 93 Room Air 06/05/25 12:55 36.6 C 80 16 157/86 H 94 Room Air 06/05/25 12:40 78 13 147/84 H 94 Room Air 06/05/25 12:30 36.4 C L 81 14 152/72 H 95 Room Air 06/05/25 12:20 80 13 136/89 98 Oxymask 06/05/25 12:10 83 12 147/77 H 97 Oxymask 06/05/25 12:02 36 C L 84 14 149/83 H 100 Oxymask 06/05/25 06:44 36.4 C L 62 20 165/75 H 99 Room Air O2 Flow Rate 06/05/25 13:24 06/05/25 12:55 06/05/25 12:40 06/05/25 12:30 06/05/25 12:20 4 06/05/25 12:10 13 06/05/25 12:02 13 06/05/25 06:44 Pain Intensity Right Shoulder: Pain Intensity: 5 Left Shoulder: Pain Intensity: 3 Lower Back: Pain Intensity: 2 Transfer of Care Handoff Completed per policy Notes Mental Status: alert / awake / arousable and participated in evaluation Patient Amnestic to Procedure: Yes Nausea / Vomiting: adequately controlled Pain: adequately controlled Airway Patency, RR, SpO2: stable & adequate BP & HR: stable & adequate Hydration State: stable & adequate Anesthetic Complications: no major complications apparent
--- NOTE | 2025-06-05 14:07 | Orthopedic Progress Note ---
Date of Service June 05, 2025 Assessment & Plan Admission and Anticipated Discharge Date Admission Date: June 05, 2025 Orthopedic Progress Note P.m. afternoon rounds check status post total shoulder replacement reverse variety. Doing well. Denies chest pain shortness of breath fever chills numbness vomiting headache. Vital signs are stable he is afebrile. Neurovascular check reveals median radial ulnar nerve to be functioning proximally the block is working well is no pain and has no sensation or motor function above the elbow. Wound dressing clean dry and intact. Postop x-rays look excellent. Assessment doing well pain is well-managed by the block. Postop x-rays look excellent. Continue care pathway. Discharge in a.m. Provide protocol for PT. He will come to the office for dressing change tomorrow. Initiate anticoagulation tomorrow.
[2025-06-05] MEDS: ONDANSETRON INJ 2 MG/ML 2 ML VIAL IV PRN (15:47)
[2025-06-05] MEDS: ASCORBIC ACID 500 MG TAB PO SCH (17:37)
[2025-06-05] MEDS: FERROUS GLUCONATE 324 MG TAB PO SCH (17:37)
[2025-06-05] MEDS: METOCLOPRAMIDE HCL INJ 5 MG/ML 2 ML VIAL IV PRN (20:51)
[2025-06-05] MEDS: SENNA 8.6 MG TAB PO SCH (22:09)
[2025-06-05] MEDS: DOCUSATE SODIUM 100 MG CAP PO SCH (22:10)
[2025-06-05] MEDS: KETOROLAC TROMETHAMINE 15 MG/ML VIAL IV PRN (23:21)
[2025-06-06 06:35] LABS: Hematocrit (blood only) 37.6 % (42.0-52.0); Hemoglobin 13.1 g/dl (14.0-18.0); Immature Granulocytes # (auto) 0.03 K/uL (0.01-0.20); Immature Granulocytes % (auto) 0.3 %; Mean Corpuscular Hemoglobin 30.9 pg (25.0-34.0); Mean Corpuscular Volume 88.7 fL (80.0-100.0); Platelet Count 249 K/uL (130-400); RDW Standard Deviation 41.1 fL (36.4-46.3); Red Blood Count 4.24 M/uL (4.70-6.10); White Blood Count 10.42 K/ul (4.8-10.8)
--- NOTE | 2025-06-06 07:03 | Orthopedic Progress Note ---
Date of Service June 06, 2025 Assessment & Plan Admission and Anticipated Discharge Date Admission Date: June 05, 2025 Orthopedic Progress Note Postop day 1 status post right total shoulder replacement. He is doing well. He is very comfortable. He denies any chest pain shortness of breath fever chills nausea vomiting headache. Vital signs are stable he is afebrile. Axillary nerve is functioning feels the shoulder better has good muscle firing with resisted extension and abduction. Median radial ulnar nerve distally are normal. Wound dressing clean dry and intact. Assessment doing well continue plans to discharge today dressing change at the office. Will need his postop PT protocol. I have generated that. He can obtain it in the office. Resume anticoagulation.
[2025-06-06 07:06] LABS: Anion Gap 10.0 (3-11); Blood Urea Nitrogen 22.0 mg/dl (6-23); Calcium 9.1 mg/dl (8.6-10.3); Carbon Dioxide 26.0 mmol/L (21-32); Chloride 103.0 mmol/L (98-107); Creatinine Clr Calc Pharmacy 62.7 ml/min; Glucose 96.0 mg/dl (70-99(Fasting)); Potassium 4.2 mmol/L (3.5-5.1); Sodium 139.0 mmol/L (136-145)
[2025-06-06 07:11] VITALS: BP 125/67; PULSE 70; RESP 16; TEMP 98.2; O2SAT 94
[2025-06-06] MEDS: LORATADINE 10 MG TAB PO SCH (08:03)
[2025-06-06] MEDS: FOLIC ACID 400 MCG TAB PO SCH (08:03)
[2025-06-06] MEDS: ASPIRIN 81 MG ECTAB PO SCH (08:03)
[2025-06-06] MEDS: MULTIVITAMIN TAB PO SCH (08:03)
[2025-06-06] MEDS: dexAMETHasone 10 MG in SYRINGE 0 ML IV SCH (08:04)
[2025-06-06] MEDS: AZELASTINE HCL 0.1% NASAL 200 SPRAYS/27,400 MCG BTL NAE SCH (08:04)
--- NOTE | 2025-06-06 08:57 | Orthopedic Progress Note ---
Date of Service June 06, 2025 Assessment & Plan (1) Status post replacement of right shoulder joint: Plan: The patient was educated regarding today's findings. He will be discharged to home today. He has an appointment with me at the office at 1115 for dressing change and review of his PT protocol. Prescriptions for rifampin and Percocet were sent to his pharmacy. Written discharge instructions were provided. Follow-up in the office for staple removal on June 20. This has already been scheduled. Admission and Anticipated Discharge Date Admission Date: June 05, 2025 Subjective This 74-year-old male is seen today in his room. 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 He states he is doing well. He feels ready for discharge to home. He already has physical therapy set up as an outpatient closer to his home. This morning he denies any chest pain, shortness of breath, nausea, vomiting, diarrhea, or abdominal pain. He states he did have some nausea last evening after dinner, but this resolved. No further episodes. He has minimal shoulder discomfort at this point. His daughter is present at this time. Review of Systems Review of Systems: Unchanged from yesterday. Physical Exam Physical Exam: General: Well-developed, well-nourished, elderly male, in no acute distress. Sitting in his bedside chair. Alert and oriented. Conversive. Skin: Warm and dry with good turgor. No rashes. Postsurgical dressings are in place on the right shoulder. There is no bleeding. Musculoskeletal: The patient has intact motor function of his right fingers and wrist. Shoulder motion was not attempted. He has intact supination and pronation of the elbow. Flexion and extension were not attempted at this time. Neurologic: Gross sensation is intact across the right arm and hand by soft touch. Peripheral pulses are 2+. Results & Data Vital Signs (Past 12 Hours) Vital Signs Temp Pulse Resp BP Pulse Ox O2 Del Method 06/06/25 07:09 36.8 C 70 16 125/67 94 Room Air 06/06/25 03:30 36.6 C 66 20 111/65 95 Room Air 06/05/25 23:36 36.8 C 87 20 126/69 95 Room Air Laboratory Results CBC obtained today shows a white count of 10.4. H&H of 13.1 and 37.6. Normal platelets at 249,000. PRP shows normal electrolytes. Normal BUN and creatinine. Glucose this morning is 96.
== END 2025-06-06 10:33 | disposition home or self-care (01) ==
LOC: 3E 06:15 → ASU 06:15